=== PATIENT | male | born 1980 | race Caucasian/White ===

== ENCOUNTER 2019-05-29 05:39 | Outpatient (CLI) | payer OTHER, BC ==
[~2019-05-29] VITALS: Ht 187 cm; Wt 127.0 kg
== END 2019-05-29 12:27 | disposition home or self-care (01) ==
LOC: PREOP 05:39
PROVIDERS: ATTEND Surgery
DX: Z01.818 Encounter for other preprocedural examination (principal)

== ENCOUNTER 2019-12-31 19:30 | Observation (INO) | payer OTHER ==
[~2019-12-31] VITALS: Ht 188 cm; Wt 133.9 kg
[2019-12-31] MEDS ORDERED: LACTATED RINGERS 1,000 ML IV ONE ×2 (20:37→22:59)
[2019-12-31 20:45] LABS: BASOPHILS # (AUTO) 0.1 10^3/uL (0.0-0.1); BASOPHILS % (AUTO) 1 % (0-10); EOSINOPHILS # (AUTO) 0.2 10^3/uL (0.0-0.3); EOSINOPHILS % (AUTO) 2 % (0-10); HEMATOCRIT 43 % (40-54); HEMOGLOBIN 14.8 g/dL (13.3-17.7); LYMPHOCYTES # (AUTO) 4.1 10^3/uL (1.0-4.0); LYMPHOCYTES % (AUTO) 44 % (12-44); MEAN CORPUSCULAR HEMOGLOBIN 30 pg (25-34); MEAN CORPUSCULAR HGB CONC 35 g/dL (32-36); MEAN CORPUSCULAR VOLUME 86 fL (80-99); MEAN PLATELET VOLUME 10.8 fL (9.0-12.2); MONOCYTES # (AUTO) 0.7 10^3/uL (0.0-1.0); MONOCYTES % (AUTO) 8 % (0-12); NEUTROPHILS # (AUTO) 4.2 10^3/uL (1.8-7.8); NEUTROPHILS % (AUTO) 45 % (42-75); PLATELET COUNT 276 10^3/uL (130-400); WHITE BLOOD COUNT 9.3 10^3/uL (4.3-11.0)
[2019-12-31] MEDS ORDERED: PANTOPRAZOLE 40 MG (PROTONIX) VIAL IV ONE (20:45)
[2019-12-31] MEDS ORDERED: KETOROLAC 30 MG/ML VIAL IVP ONE (20:45)
[2019-12-31] MEDS ORDERED: ONDANSETRON 4 MG/2 ML (SDV) Z0FRAN IVP ONE (20:45)
--- NOTE | 2019-12-31 20:45 | ED Abdominal Pain ---
General Chief Complaint: Abdominal/GI Problems Stated Complaint: UPPER ABD PAIN Source of Information: Patient Exam Limitations: No Limitations History of Present Illness Date Seen by Provider: Dec 31, 2019 Time Seen by Provider: 20:23 Initial Comments Patient presents ER by private conveyance with chief complaint he's been having epigastric and right upper quadrant abdominal pain for several months. The pain radiates through to his back. He says it is the same way his brother describes his pain when he had gallbladder problems. For the past 8 days however it has been nightly after eating. He had ribs tonight about 2 and half hours prior to arrival. He is being worked up outpatient by [facility] and has a planned ultrasound but is not scheduled yet. Labs done but he does not other results. No history of abdominal surgeries or trauma. No fevers or chills. He's having a history of chronic diarrhea perhaps IBS he says. He has some nausea and rates his pain as an 8 out of 10. He had colonoscopy a few years ago with Dr. Perry and they discovered he had some polyps and was to follow-up in 1 year. No blood in stool. Allergies and Home Medications Allergies Coded Allergies: No Known Drug Allergies (Unverified , 05/29/19) Home Medications No Active Prescriptions or Reported Meds Patient Home Medication List Home Medication List Reviewed: Yes Review of Systems Review of Systems Constitutional: No chills, No diaphoresis EENTM: No Blurred Vision, No Double Vision Respiratory: Denies Cough, Denies Shortness of Air Cardiovascular: Denies Chest Pain, Denies Lightheadedness Gastrointestinal: See HPI; Denies Abdomen Distended; Abdominal Pain; Denies Constipated; Diarrhea, Nausea; Denies Poor Fluid Intake, Denies Rectal Bleeding, Denies Vomiting Genitourinary: Denies Burning, Denies Discharge Musculoskeletal: No back pain, No joint pain Past Juijors-Xluagp-Wanrpf Hx Patient Social History Alcohol Use: Denies Use Recreational Drug Use: No Smoking Status: Former Smoker Former Smoker, Quit: May 29, 2015 2nd Hand Smoke Exposure: Yes Recent Foreign Travel: No Contact w/Someone Who Travel: No Recent Hopitalizations: No Immunizations Up To Date Date of Influenza Vaccine: Jan 02, 2019 Seasonal Allergies Seasonal Allergies: No Past Medical History Surgeries: Yes (KNEE ) Respiratory: No Cardiac: No Neurological: No Sexually Transmitted Disease: No HIV/AIDS: No Genitourinary: Yes Kidney Stones Gastrointestinal: No Musculoskeletal: No Endocrine: No HEENT: No Loss of Vision: Denies Hearing Impairment: Denies Psychosocial: No Integumentary: No Blood Disorders: No Adverse Reaction/Blood Tranf: No (N/A) Physical Exam Vital Signs Capillary Refill : Height/Weight/BMI Height: '" Weight: lbs. oz. kg; 36.31 BMI Method: General Appearance: WD/WN, mild distress HEENT: TMs normal, pharynx normal Neck: full range of motion, supple, normal inspection Respiratory: lungs clear, normal breath sounds, no respiratory distress, no accessory muscle use Cardiovascular: normal peripheral pulses, regular rate, rhythm Gastrointestinal: normal bowel sounds, soft, no organomegaly, tenderness (epigastric and right upper quadrant without Brenner sign. Negative for mesenteri c signs.) Neurologic/Psychiatric: alert, normal mood/affect, oriented x 3 Skin: normal color, warm/dry Progress/Results/Core Measures Results/Orders Lab Results Laboratory Tests Test 12/31/19 20:27 Range/Units White Blood Count 9.3 4.3-11.0 10^3/uL Red Blood Count 4.96 4.30-5.52 10^6/uL Hemoglobin 14.8 13.3-17.7 g/dL Hematocrit 43 40-54 % Mean Corpuscular Volume 86 80-99 fL Mean Corpuscular Hemoglobin 30 25-34 pg Mean Corpuscular Hemoglobin Concent 35 32-36 g/dL Red Cell Distribution Width 12.6 10.0-14.5 % Platelet Count 276 130-400 10^3/uL Mean Platelet Volume 10.8 9.0-12.2 fL Immature Granulocyte % (Auto) 0 % Neutrophils (%) (Auto) 45 42-75 % Lymphocytes (%) (Auto) 44 12-44 % Monocytes (%) (Auto) 8 0-12 % Eosinophils (%) (Auto) 2 0-10 % Basophils (%) (Auto) 1 0-10 % Neutrophils # (Auto) 4.2 1.8-7.8 10^3/uL Lymphocytes # (Auto) 4.1 H 1.0-4.0 10^3/uL Monocytes # (Auto) 0.7 0.0-1.0 10^3/uL Eosinophils # (Auto) 0.2 0.0-0.3 10^3/uL Basophils # (Auto) 0.1 0.0-0.1 10^3/uL Immature Granulocyte # (Auto) 0.0 0.0-0.1 10^3/uL Sodium Level 139 135-145 MMOL/L Potassium Level 4.0 3.6-5.0 MMOL/L Chloride Level 102 98-107 MMOL/L Carbon Dioxide Level 24 21-32 MMOL/L Anion Gap 13 5-14 MMOL/L Blood Urea Nitrogen 13 7-18 MG/DL Creatinine 0.96 0.60-1.30 MG/DL Estimat Glomerular Filtration Rate > 60 BUN/Creatinine Ratio 14 Glucose Level 124 H 70-105 MG/DL Calcium Level 9.1 8.5-10.1 MG/DL Corrected Calcium 8.9 8.5-10.1 MG/DL Total Bilirubin 0.5 0.1-1.0 MG/DL Aspartate Amino Transf (AST/SGOT) 38 H 5-34 U/L Alanine Aminotransferase (ALT/SGPT) 134 H 0-55 U/L Alkaline Phosphatase 93 40-136 U/L C-Reactive Protein High Sensitivity 0.18 0.00-0.50 MG/DL Total Protein 7.6 6.4-8.2 GM/DL Albumin 4.3 3.2-4.5 GM/DL Lipase 26 8-78 U/L My Orders Orders - FRAN MIRZA Ct Abdomen/Pelvis W (12/31/19 20:37) Ed Iv/Invasive Line Start (12/31/19 20:37) Lactated Ringers (Lr 1000 Ml Iv Solution (12/31/19 20:37) Cbc With Automated Diff (12/31/19 20:37) Comprehensive Metabolic Panel (12/31/19 20:37) Hs C Reactive Protein (12/31/19 20:37) Lipase (12/31/19 20:37) Ua Culture If Indicated (12/31/19 20:37) Ketorolac Injection (Toradol Injection) (12/31/19 20:45) Pantoprazole Injection (Protonix Injecti (12/31/19 20:45) Ondansetron Injection (Zofran Injectio (12/31/19 20:45) Iohexol Injection (Omnipaque 350 Mg/Ml 1 (12/31/19 21:00) Received Contrast (Hold Metformin- Contr (12/31/19 21:00) Ns (Ivpb) (Sodium Chloride 0.9% Ivpb Bag (12/31/19 21:00) Medications Given in ED Current Medications Medications Dose Ordered Sig/Nataliia Route Start Time Stop Time Status Last Admin Dose Admin Iohexol 100 ml ONCE ONCE IV 12/31/19 21:00 12/31/19 21:02 DC 12/31/19 21:05 100 ML Ketorolac Tromethamine 30 mg ONCE ONCE IVP 12/31/19 20:45 12/31/19 20:46 DC 12/31/19 20:50 30 MG Lactated Ringer's 1,000 ml @ 0 mls/hr Q0M ONCE IV 12/31/19 20:37 12/31/19 20:40 DC 12/31/19 20:51 1,000 MLS/HR Ondansetron HCl 8 mg ONCE ONCE IVP 12/31/19 20:45 12/31/19 20:46 DC 12/31/19 20:50 8 MG Pantoprazole 40 mg ONCE ONCE IV 12/31/19 20:45 12/31/19 20:46 DC 12/31/19 20:51 40 MG Sodium Chloride 100 ml ONCE ONCE IV 12/31/19 21:00 12/31/19 21:02 DC 12/31/19 21:06 80 ML Progress Progress Note : Time: 20:44 Progress Note Suspect cholecystitis, obstruction of the biliary system, pancreatitis, P UD/gastritis, colitis. Get a CT of his abdomen and pelvis with IV contrast. Plan to give him a liter of lactated Ringer's. He does not appear septic and has aseptic vital signs. We'll get some labs and urinalysis. Less likely kidney stone. Diagnostic Imaging Diagonstic Imaging: CT Plain Films/CT/US/NM/MRI: abdomen, pelvis Comments NAME: URBANO SIERRA MED REC#: [id number] PT STATUS: REG ER : 1980 PHYSICIAN: FRAN MIRZA MD ADMIT DATE: 12/31/19/ER Draft Date of Exam:12/31/19 CT ABDOMEN/PELVIS W EXAMINATION: CT abdomen and pelvis with intravenous contrast. TECHNIQUE: Multiple contiguous axial images were obtained through the abdomen and pelvis after the uneventful administration of intravenous contrast. All CT scans use one or more of the following dose optimizing techniques: automated exposure control, MA and/or KvP adjustment based on patient size and exam type or iterative reconstruction. HISTORY: Right upper quadrant pain. Pain radiating to the back. COMPARISON: None available. FINDINGS: The heart is unremarkable. The included lung bases are clear. A gallstone is visualized in the neck of the gallbladder. No intra or extra hepatic biliary dilation is seen. Hepatic steatosis is noted. There is focal fatty sparing along the gallbladder fossa. The portal vein is patent. The spleen, pancreas, adrenal glands and kidneys have a normal appearance. There is no pathologically enlarged mesenteric or retroperitoneal adenopathy. The bowel loops are nondilated. The appendix is visualized in the right lower quadrant and has a normal appearance. There is no free fluid or free air. No acute osseous abnormality. Ureters and bladder are grossly normal. There is no free air, loculated collection or adenopathy in the pelvis. IMPRESSION: 1. Cholelithiasis. This may represent the patient's history of pain after eating. Consider further evaluation with liver/gallbladder ultrasound. 2. Hepatic steatosis. Dictated on workstation # [id number] Dict: 12/31/192116 Trans: 12/31/192121 [facility] [phone] Interpreted by: ALAYNA RODRIGUEZ DO Electronically signed by: Reviewed: Reviewed by Me Departure Communication (Admissions) Time/Spoke to Admitting Phy: 21:30 Discussed the case with Dr. Galindo, general surgeon and he agrees to observe the patient under his name and provide him with pain medicines fluids nausea medic asim and clear liquid diet until 2 AM then nothing by mouth. Plan to admit the patient on at the end of his surgical day. Impression Primary Impression: Cholelithiasis Qualified Codes: K80.20 - Calculus of gallbladder without cholecystitis without obstruction Additional Impression: Recurrent biliary colic Disposition: ADMITTED INPATIENT Condition: Stable Admissions Decision to Admit Reason: Admit from ER (General) Decision to Admit/Date: Dec 31, 2019 Time/Decision to Admit Time: 21:29 Departure-Patient Inst. Referrals: NO,LOCAL PHYSICIAN (PCP/Family) Primary Care Physician Scripts No Active Prescriptions or Reported Meds FRAN MIRZA Dec 31, 2019 20:45
[2019-12-31 20:58] LABS: ALANINE AMINOTRANSFERASE 134 U/L (0-55); ALBUMIN 4.3 GM/DL (3.2-4.5); ALKALINE PHOSPHATASE 93 U/L (40-136); BILIRUBIN,TOTAL 0.5 MG/DL (0.1-1.0); BUN/CREATININE RATIO 14; CALCIUM 9.1 MG/DL (8.5-10.1); CARBON DIOXIDE 24 MMOL/L (21-32); CHLORIDE 102 MMOL/L (98-107); CREATININE SERUM 0.96 MG/DL (0.60-1.30); GFR ESTIMATED > 60; GLUCOSE 124 MG/DL (70-105); LIPASE 26 U/L (8-78); SODIUM 139 MMOL/L (135-145); TOTAL PROTEIN 7.6 GM/DL (6.4-8.2)
[2019-12-31] MEDS ORDERED: HOLD METFORMIN - RECEIVED CONTRAST 20 ML VIAL IV SCH (21:00)
[2019-12-31] MEDS ORDERED: NS 100 ML (IVPB) BAG IV ONE (21:00)
[2019-12-31] MEDS ORDERED: IOHEXOL 350 MG/ML 100 ML (OMNIPAQUE 350) VIAL IV ONE (21:00)
--- NOTE | 2019-12-31 21:22 | Diagnostic Imaging Report ---
EXAMINATION: CT abdomen and pelvis with intravenous contrast. TECHNIQUE: Multiple contiguous axial images were obtained through the abdomen and pelvis after the uneventful administration of intravenous contrast. All CT scans use one or more of the following dose optimizing techniques: automated exposure control, MA and/or KvP adjustment based on patient size and exam type or iterative reconstruction. HISTORY: Right upper quadrant pain. Pain radiating to the back. COMPARISON: None available. FINDINGS: The heart is unremarkable. The included lung bases are clear. A gallstone is visualized in the neck of the gallbladder. No intra or extra hepatic biliary dilation is seen. Hepatic steatosis is noted. There is focal fatty sparing along the gallbladder fossa. The portal vein is patent. The spleen, pancreas, adrenal glands and kidneys have a normal appearance. There is no pathologically enlarged mesenteric or retroperitoneal adenopathy. The bowel loops are nondilated. The appendix is visualized in the right lower quadrant and has a normal appearance. There is no free fluid or free air. No acute osseous abnormality. Ureters and bladder are grossly normal. There is no free air, loculated collection or adenopathy in the pelvis. IMPRESSION: 1. Cholelithiasis. This may represent the patient's history of pain after eating. Consider further evaluation with liver/gallbladder ultrasound. 2. Hepatic steatosis. Dictated by: Dictated on workstation # [id number]
--- NOTE | 2019-12-31 22:06 | Progress Note-Pre Operative ---
Pre-Operative Progress Note H&P Reviewed The H&P was reviewed, patient examined and no changes noted. Time Seen by Provider: 22:00 Date H&P Reviewed: Dec 31, 2019 Time H&P Reviewed: 22:00 Pre-Operative Diagnosis: chronic calcullous cholecystitis XOCHILT MCFADDEN MD Dec 31, 2019 22:06
[2019-12-31 22:55] VITALS: BP 127/82
--- NOTE | 2019-12-31 22:55 | NUR ---
URBANO SIERRA admitted to room 412-1, with an admitting diagnosis of CHOLELITHIASIS, BILIARY COLIC , on 12/31/19 from [facility] via WHEELCHAIR, accompanied by STAFF. URBANO SIERRA introduced to surroundings, call light, bed controls, phone, TV, temperature control, lights, meal times, smoking policy, visitor policy, side rail policy, bathrooms and showers. Patient Rights given to patient in the handbook. URBANO SIERRA verbalizes understanding that [facility] is not responsible for the loss or damage to any personal effects or valuables that are kept in the patients posession during their hospitalization. URBANO SIERRA verbalizes understanding of Interdisciplinary Patient Education. Patient and/or family were informed about the Rapid Response Team and its purpose.
--- NOTE | 2019-12-31 23:28 | HISTORY AND PHYSICAL ---
DATE OF SERVICE: 12/31/2019 HISTORY OF PRESENT ILLNESS: The patient is a 39-year-old male who presented to [facility] Emergency Department with an 8-day history of right upper abdominal quadrant pain. He states that after eating dinner and was sharp and crampy in nature with associated nausea; however, no vomiting. He reports that he has had these symptoms for several months; however, not severe. A CT scan was performed, which did show a large gallstone. He does not report any fever or chills as well as no change in bowel habits. PAST MEDICAL HISTORY: Degenerative joint disease, nephrolithiasis. PAST SURGICAL HISTORY: Knee arthroscopy. ALLERGIES: No known drug allergies. MEDICATIONS: None. SOCIAL HISTORY: Previously smoked, quit in 2016. Negative alcohol. FAMILY HISTORY: Noncontributory. REVIEW OF SYSTEMS: Well-nourished male in no acute distress. He is not experiencing any shortness of breath or difficulty breathing. No chest pain, palpitations, diaphoresis. Associated pain in right upper abdominal quadrant usually after meals. No vomiting. No diarrhea, constipation, no red blood per rectum, no dark tarry stools. No fever, chills, no recent inadvertent weight loss. All other review of systems negative. PHYSICAL EXAMINATION: VITAL SIGNS: Stable, afebrile. CHEST: Clear. Good breath sounds bilaterally. HEART: Regular. No murmurs. EXTREMITIES: No lower extremity edema, negative Homans sign. HEENT: No scleral icterus is noted. NECK: No cervical lymphadenopathy. ABDOMEN: Soft, nontender. There is pain in the right upper abdominal quadrant. Positive Brenner sign. No peritoneal signs. SKIN: Warm and dry. LABORATORY DATA: WBC 9.3, hemoglobin 13.8, hematocrit 33, platelets 276. BUN 13, creatinine 0.96, total bilirubin 0.5, AST 38, ALT 134. ASSESSMENT AND PLAN: A 39-year-old male with symptomatic chronic calculous cholecystitis. The natural history of gallbladder disease was explained to the patient including risks and benefits of surgery and he is in full understanding of this and would like to proceed with a laparoscopic cholecystectomy, which we will schedule in this admission. Job ID: [id number] DocumentID: [id number] Dictated Date: 12/31/2019 22:00:26 Garden Labourer Date: 12/31/2019 23:27:26 Dictated By: XOCHILT MCFADDEN MD [facility]
[2019-12-31] MEDS ORDERED: ONDANSETRON 4 MG/2 ML (SDV) Z0FRAN IV PRN (23:30)
[2019-12-31] MEDS ORDERED: HYDROmorphone 2 MG/ML VIAL (DILAUDID) IV PRN (23:30)
[2019-12-31] MEDS ORDERED: ACETAMINOPHEN 500 MG TAB (TYLENOL) PO PRN (23:30)
[2019-12-31] MEDS ORDERED: fentaNYL INJECTION 100 MCG/2 ML AMP IV PRN (23:30)
[2019-12-31] MEDS: LACTATED RINGERS 1,000 ML IV SCH (23:39)
[2020-01-01] VITALS (13 sets, daily range): BP systolic 114–161; BP diastolic 65–96
[2020-01-01 06:43] LABS: BASOPHILS # (AUTO) 0.1 10^3/uL (0.0-0.1); BASOPHILS % (AUTO) 1 % (0-10); EOSINOPHILS # (AUTO) 0.2 10^3/uL (0.0-0.3); EOSINOPHILS % (AUTO) 3 % (0-10); HEMATOCRIT 40 % (40-54); HEMOGLOBIN 13.7 g/dL (13.3-17.7); LYMPHOCYTES # (AUTO) 4.1 10^3/uL (1.0-4.0); LYMPHOCYTES % (AUTO) 51 % (12-44); MEAN CORPUSCULAR HEMOGLOBIN 30 pg (25-34); MEAN CORPUSCULAR HGB CONC 34 g/dL (32-36); MEAN CORPUSCULAR VOLUME 87 fL (80-99); MEAN PLATELET VOLUME 11.2 fL (9.0-12.2); MONOCYTES # (AUTO) 0.6 10^3/uL (0.0-1.0); MONOCYTES % (AUTO) 7 % (0-12); NEUTROPHILS % (AUTO) 38 % (42-75); PLATELET COUNT 229 10^3/uL (130-400); WHITE BLOOD COUNT 7.9 10^3/uL (4.3-11.0)
[2020-01-01 06:56] LABS: ALBUMIN 3.8 GM/DL (3.2-4.5); CHLORIDE 106 MMOL/L (98-107); POTASSIUM 4.1 MMOL/L (3.6-5.0); SODIUM 139 MMOL/L (135-145)
[2020-01-01 06:57] LABS: CALCIUM 8.3 MG/DL (8.5-10.1)
[2020-01-01 06:58] LABS: GLUCOSE 113 MG/DL (70-105); TOTAL PROTEIN 6.6 GM/DL (6.4-8.2)
[2020-01-01 06:59] LABS: CARBON DIOXIDE 23 MMOL/L (21-32)
[2020-01-01 07:00] LABS: BILIRUBIN,TOTAL 0.5 MG/DL (0.1-1.0)
[2020-01-01 07:02] LABS: ALKALINE PHOSPHATASE 73 U/L (40-136); CREATININE SERUM 0.89 MG/DL (0.60-1.30); GFR ESTIMATED > 60
[2020-01-01 07:03] LABS: BUN/CREATININE RATIO 13
[2020-01-01 07:05] LABS: ALANINE AMINOTRANSFERASE 111 U/L (0-55)
[2020-01-01] MEDS ORDERED: PANTOPRAZOLE 40 MG (PROTONIX) VIAL IV SCH (09:00)
[2020-01-01] MEDS: LACTATED RINGERS 1,000 ML IV SCH (09:07)
[2020-01-01] MEDS ORDERED: BUP/EPI 0.25% 1:200,000 (MARCAINE) 30 ML VIAL ONE (12:16)
[2020-01-01] MEDS ORDERED: LIDOCAINE PF 2% 5 ML (XYLOCAINE) VIAL ONE (14:25)
[2020-01-01] MEDS ORDERED: proPOfol 200 MG/20 ML (DIPRIVAN) VIAL IV ONE (14:25)
[2020-01-01] MEDS ORDERED: ROCURONIUM 10 MG/ML 5 ML SYRINGE IV ONE (14:25)
[2020-01-01] MEDS ORDERED: SEVOFLURANE (ULTANE) 15 ML INHAL SOLN ONE ×3 (14:25→18:40)
[2020-01-01] MEDS ORDERED: fentaNYL INJECTION 100 MCG/2 ML AMP ONE (14:26)
[2020-01-01] MEDS ORDERED: MIDAZOLAM 2 MG/2 ML (VERSED) VIAL ONE (14:26)
[2020-01-01] MEDS ORDERED: HYDR-3817 PO (14:28)
--- NOTE | 2020-01-01 14:28 | Discharge Inst-Surgical ---
D/C Lap Instructions-BOGDAN New, Converted, or Re-Newed RX: RX on Chart Follow Up Appt in 2 weeks Activity as tolerated No driving for 24 hours No driving while on pain medications Incentive Spirometry use every 2 hours while awake Regular Diet Symptoms to Report: Fever over 101 degree F, Nausea/Vomiting Infection Signs and Symptoms to report: Increased redness, Foul odor of wound, Increased drainage Bathing instructions: May shower Operative Area Clean/Dry; Keep incision clean/dry If any problems/questions: Contact your physician or go to Emergency Room XOCHILT MCFADDEN MD Jan 01, 2020 14:28
--- NOTE | 2020-01-01 16:27 | Progress Note-Post Operative ---
Post-Operative Progess Note Surgeon (s)/Fitness Sales Consultant (s) Surgeon XOCHILT MCFADDEN MD Fitness Sales Consultant: sharron saenz NET WASHER Pre-Operative Diagnosis chronic calcullous cholecystitis Post-Operative Diagnosis necrotic acalculous cholecystitis. Procedure & Operative Findings Date of Procedure 01/01/20 Procedure Performed/Findings laparoscopic cholecystectomy Anesthesia Type get Estimated Blood Loss Estimated blood loss (mL): minimal Specimens/Packing Specimens Removed gallbladder XOCHILT MCFADDEN MD Jan 01, 2020 16:27
[2020-01-01] MEDS ORDERED: HYDROcodone/APAP 7.5 MG/325 MG (LORTAB, LORCET PLUS) TABLET PO PRN (16:30)
[2020-01-01] MEDS ORDERED: SUCCINYLCHOLINE INJ 100 MG/5 ML SYR/VIAL ONE (17:50)
[2020-01-01] MEDS ORDERED: ceFAZolin INJECTION 2,000 MG ONE (17:51)
[2020-01-01] MEDS ORDERED: 0.9% SODIUM CHLORIDE PF INJ 20 ML VIAL ONE (17:52)
[2020-01-01] MEDS ORDERED: morphine INJ 10 MG/ML 1ML (SYR OR VIAL) ONE (18:11)
[2020-01-01] MEDS ORDERED: KETOROLAC 30 MG/ML VIAL ONE (18:31)
[2020-01-01] MEDS ORDERED: NEOSTIGMINE 3 MG/3 ML VIAL ONE (18:39)
[2020-01-01] MEDS ORDERED: GLYCOPYRROLATE 0.2 MG/ML (ROBINUL) 2 ML VIAL ONE (18:39)
--- NOTE | 2020-01-01 18:39 | Progress Note-Post Operative ---
Post-Operative Progess Note Surgeon (s)/Brine Tank Operator (s) Surgeon XOCHILT MCFADDEN MD Brine Tank Operator: sharron saenz VENDING ROUTE DRIVER Pre-Operative Diagnosis chronic calcullous cholecystitis Post-Operative Diagnosis same Procedure & Operative Findings Date of Procedure 01/01/20 Procedure Performed/Findings laparoscopic cholecystectomy Anesthesia Type get Estimated Blood Loss Estimated blood loss (mL): minimal Specimens/Packing Specimens Removed gallbladder XOCHILT MCFADDEN MD Jan 01, 2020 18:39
[2020-01-01] MEDS ORDERED: ONDANSETRON 4 MG/2 ML (SDV) Z0FRAN IVP PRN (19:00)
[2020-01-01] MEDS ORDERED: PROMETHAZINE INJ 25 MG/ML (PHENERGAN) AMP IVP ONE (19:00)
[2020-01-01] MEDS ORDERED: MEPERIDINE (DEMEROL) INJ 50 MG/ML IVP ONE (19:00)
[2020-01-01] MEDS ORDERED: HYDROmorphone 2 MG/ML VIAL (DILAUDID) IV ONE (19:00)
[2020-01-01] MEDS ORDERED: fentaNYL INJECTION 100 MCG/2 ML AMP IVP ONE (19:00)
--- NOTE | 2020-01-01 19:50 | NUR ---
Pt back on floor. Received report from Recovery Room Nurse. Pt alert and oriented, complaining of pain (7/10) and requesting food.
--- NOTE | 2020-01-01 21:30 | NUR ---
Pt alert and oriented. Pt tolerating food well, finished 2 sandwich trays without any problems. Pt ambulated in room and in the hallway. Pt is requesting to go home. Will process discharge.
--- NOTE | 2020-01-01 22:04 | NUR ---
Pt will be discharging to home. All instructions given. Pt in wheelchair accompanied by staff to ER Door.
--- NOTE | 2020-01-02 03:11 | OPERATIVE REPORT ---
DATE OF SERVICE: 01/01/2020 PREOPERATIVE DIAGNOSIS: Chronic calculous cholecystitis. POSTOPERATIVE DIAGNOSIS: Chronic calculous cholecystitis. PROCEDURE: Laparoscopic cholecystectomy. SURGEON: Xochilt Mcfadden MD BRIGADIER: Lazaro Romero APRN. ANESTHESIA: General endotracheal. ESTIMATED BLOOD LOSS: Minimal. FINDINGS: Mild gallbladder wall thickening, large solitary stone. DISPOSITION: The patient tolerated the procedure well. INDICATIONS: The patient is a 39-year-old male who presented to the Emergency Department with an 8-day history of right upper abdominal quadrant pain. He states that after eating dinner, he would have a sharp and crampy pain in the right upper abdominal quadrant with radiation towards the back as well as associated nausea; however, no vomiting. Upon further questioning, he reports that he has had mild symptoms for years. This time around, his symptoms were severe and he presented to the Emergency Department where a CT scan was performed, which did show a large solitary gallstone. He did not report any fever or chills as well as no change in bowel habits. DESCRIPTION OF PROCEDURE: The patient was brought to the operating room, laid supine on the table. After adequate IV pain and sedative medications and general endotracheal intubation, the abdomen was prepped and draped in standard surgical fashion. A 0.5% Marcaine with epinephrine was used to anesthetize overlying skin in the left upper abdominal quadrant and a transverse skin incision made using a 15 blade. An 0 silk suture was applied to the medial aspect incision for retraction and a Veress needle was inserted with a low opening pressure of 0 mmHg. The Veress needle was removed and a 5 mm XL trocar was placed followed by a 5 mm 45-degree angle laparoscope visualizing the peritoneal cavity. A 4-quadrant abdominal exploration was performed. There were some omental adhesions towards the falciform ligament. These were taken down bluntly. There was a mild gallbladder wall thickening. Under direct visualization, we then proceeded to place a supraumbilical 10 mm port after the skin and peritoneal lining were anesthetized using 0.5% Marcaine with epinephrine and a transverse skin incision made using a 15 blade. In a similar manner, a right upper abdominal quadrant 5 mm port was placed. The patient was then placed in reverse Trendelenburg position and plane right side up, left side down and the fundus of the gallbladder retracted anteriorly and superiorly. There were some omental adhesions that were taken down bluntly. The hepatoduodenal ligament was then opened using blunt dissection as well as electrocautery on the hook instrument. The entire critical view of safety was identified including the triangle of Calot as well as the cystic duct and artery as only two structures going into the gallbladder as well as the cystic plate behind the proximal gallbladder. A timeout was then taken and the cystic duct and artery were then clipped proximally and distally and cut with EndoShears. The gallbladder was then dissected off the liver bed using cautery and hook instrument with visualization of good hemostasis as well as no leaking ducts of Luschka. The gallbladder was removed through the 10 mm port site using an EndoCatch bag. The 10 mm port site fascia and peritoneum were then closed under direct visualization using a Tres-Christie device and 0 Vicryl suture. The abdomen was desufflated and remaining ports removed. All skin incisions were closed using 4-0 Monocryl running subcuticular suture. Wounds were then cleaned and covered with Dermabond. The patient tolerated the procedure well. We will start IV and oral pain medication as well as a clear liquid diet. Once he is tolerating clears, has good pain control with oral pain medications, and is ambulating well, we will discharge him home. He will be instructed to do no heavy lifting or exertion for the next two weeks. Job ID: [id number] DocumentID: [id number] Dictated Date: 01/01/2020 18:48:17 Mission Systems Engineer Date: 01/02/2020 03:11:21 Dictated By: XOCHILT MCFADDEN MD
--- NOTE | 2020-01-02 08:08 | Anesthesia-General Post-Op ---
General Patient Condition Mental Status/LOC: Same as Preop Cardiovascular: Satisfactory Nausea/Vomiting: Absent Respiratory: Satisfactory Pain: Controlled Complications: Absent Post Op Complications Complications None Follow Up Care/Instructions Patient Instructions None needed. Anesthesia/Patient Condition Patient Condition Patient is doing well, no complaints, stable vital signs, no apparent adverse anesthesia problems. No complications reported per nursing. TONG GRECO CRNA Jan 02, 2020 08:08
== END 2020-01-01 22:04 | disposition home or self-care (01) ==
LOC: EDUNIT# 19:30 → ER 19:32 → 4TH 21:40
PROVIDERS: ADMIT Surgery; ATTEND Surgery
DX: K80.12 Calculus of gallbladder with acute and chronic cholecystitis without obstruction (principal); E66.9 Obesity, unspecified; Z68.37 Body mass index [BMI] 37.0-37.9, adult; Z79.899 Other long term (current) drug therapy; Z87.891 Personal history of nicotine dependence; Z20.828 Contact with and (suspected) exposure to other viral communicable diseases
CPT/HCPCS: 47562; 74177; 80053 ×2; 83690; 85025 ×2; 86141; 87081; 88304; 96374; 96375; 99284; U0002; 36415; 87635